=== PATIENT | male | born 1960 | race Hispanic/Latino ===

== ENCOUNTER 2023-03-12 12:03 | Emergency (ER) | payer MEDICARE ==
[~2023-03-12] VITALS: Ht 162.6 cm; Wt 72.0 kg
[2023-03-12] VITALS (32 sets, daily range): BP systolic 127–164; BP diastolic 77–91
[~2023-03-12 12:03] MED LIST: AMLODIPINE BESYL5 MG PO; AUGMENTIN500TAB PO; BACTRIM DS1 TAB PO; BENADRYL25 M1 PO; COLCHICINE0.6 M2 PO; DAPTOMYCIN500 MG IV; EC-NAPROSYN500 MG PO; ERTAPENEM1 GM IV; FAMOTIDINE20 M1 PO; FLORASTOR250 M1 PO; LANTUS SOL100 UNIT/M SC; LISINOPRIL10 MG PO; MEDDOSEPAK PO; MELATONIN10 MG PO; METFORMIN1000 MG PO; MICRONASE5 MG PO; ONDANSETRON4 MG PO; OXYCOD-APAP1 TA1 PO; TRAMADOL HYDROC50 MG PO; ZOFRAN ODT4 MG PO; ZOFRAN4 M1 PO; ZPAK PO
[2023-03-12] MEDS ORDERED: HYDROCO/APAP1 TA9 PO (12:53)
[2023-03-12 12:56] LABS: BASO% 0.1 % (0-3); HEMATOCRIT 25.5 % (39.0-50.0); IMMATURE GRANULOCYTES 1.3 % (0.0-5.0); LYMPH% 9.9 % (15-41); MEAN CELL VOLUME 89.5 fL CALC (80.0-100.0); MEAN CORPUSCULAR HGB 31.6 pG CALC (26.0-32.0); MEAN CORPUSCULAR HGB CONC 35.3 g/dL CAL (32.0-36.0); MONO% 2.9 % (2-13); NEUT# 6.85 thou/uL (1.82-7.42); NEUT% 85.8 % (42-76); RED BLOOD COUNT 2.85 mill/uL (4.70-6.10); RED CELL DISTRI WIDTH 12.6 % (11.5-15.5); URINE BILIRUBIN - DIPSTICK NEGATIVE (NEGATIVE); URINE BLOOD DIPSTICK SMALL (NEGATIVE); URINE COLOR YELLOW; URINE GLUCOSE - DIPSTICK 250 mg/dL (NEGATIVE); URINE KETONE NEGATIVE (NEGATIVE); URINE LEUK ESTERASE NEGATIVE (NEGATIVE); URINE PROTEIN - DIPSTICK >=300 mg/dL (NEG-TRACE); URINE SPECIFIC GRAVITY >=1.030; URINE UROBILINOGEN - DIPSTICK 0.2 E.U./dL (0.2)
[2023-03-12 13:06] LABS: PROTHROMBIN TIME 12.7 SECONDS (9.0-12.5)
[2023-03-12 13:13] LABS: ALKALINE PHOSPHATASE 110 u/l (38-126); BUN 17 mg/dL (8-23); BUN/CREATININE RATIO 13 (12-20 (CALC)); CHLORIDE 96 mmol/l (95-108); CREATININE 1.3 mg/dL (0.7-1.3); ETHYL ALCOHOL 0 mg/dl (0-30); GFR FOR AFR.AMER. > 60 ML/MIN (>=60 (CALC)); GFR OTHER RACES 56 ML/MIN (>=60 (CALC)); POTASSIUM 3.3 mmol/l (3.5-5.1); SODIUM 131 mmol/l (137-146)
[2023-03-12 13:14] LABS: URINE MUCUS MANY hpf (NONE-FEW); URINE NITRITE - DIPSTICK NEGATIVE (Negative)
[2023-03-12 13:15] LABS: ALBUMIN 3.5 g/dL (3.2-5.0); ANION GAP 20 (6-22 (CALC)); BILIRUBIN, TOTAL 0.7 mg/dL (0.2-1.3); CARBON DIOXIDE 18 mmol/l (22-30); INTERNATIONAL NORMALIZED RATIO 1.3 RATIO (0.7-1.3); SGOT/AST 51 u/l (19-48); TOTAL PROTEIN 7.5 g/dL (6.3-8.2)
== END 2023-03-12 17:11 | disposition short-term general hospital (02) ==
LOC: ED 12:03
PROVIDERS: Family Medicine
PROC: 05HN33Z Insertion of Infusion Device into Left Internal Jugular Vein, Percutaneous Approach (ICD-10-PCS; principal; 2023-03-12)
PROC: 0BH17EZ Insertion of Endotracheal Airway into Trachea, Via Natural or Artificial Opening (ICD-10-PCS; 2023-03-12)
PROC: 5A1935Z Respiratory Ventilation, Less than 24 Consecutive Hours (ICD-10-PCS; 2023-03-12)
DX: I46.9 Cardiac arrest, cause unspecified (principal); J10.1 Influenza due to other identified influenza virus with other respiratory manifestations; I10 Essential (primary) hypertension; E11.9 Type 2 diabetes mellitus without complications; Z95.1 Presence of aortocoronary bypass graft; Z79.4 Long term (current) use of insulin; Z89.411 Acquired absence of right great toe; Z20.822 Contact with and (suspected) exposure to COVID-19